=== PATIENT | female | born 1945 | race Caucasian/White ===

== ENCOUNTER → 2023-05-04 11:11 | Outpatient (REF) | payer MEDICARE, OTHER, SELFPAY | LOC: RAD 11:11 | PROVIDERS: ATTENDING PHYSICIAN Registered Nurse | DX: R07.81 Pleurodynia (principal); W19.XXXA Unspecified fall, initial encounter | CPT/HCPCS: 71101 ==

== ENCOUNTER 2023-07-16 11:59 | Emergency (ER) | payer MEDICARE, OTHER, SELFPAY ==
[2023-07-16 12:00] VITALS: BP 158/83
--- NOTE | 2023-07-16 13:06 | ED.GENMED ---
History of Present Illness
General
Chief Complaint: Skin Surface Trauma
Source: patient
Exam Limitations: none
Time Seen by Provider: 07/16/23 13:02
Nursing documentation reviewed up to this point in time: agreed with
Travel History
Have you had any contact with someone who has COVID-19?: No
Do you have any symptoms of coronavirus? Fever > 100 degrees, chills, cough, shortness of breath, sore throat, loss of taste or smell, muscle aches, or headache?: No
History of Present Illness
History of Present Illness:
This is a 78-year-old female with a past medical history of GERD who is presenting to the emergency department today with a left mcclure puncture wound. Patient states that she was working outside in the garden when she tripped and a small wooden
stake surrounding the garden punctured her left leg as she fell. Patient states that the stake did not break and states that there is no foreign body in her leg. Patient denies any head strike when she fell, denies any neck pain. Patient denies any
other injuries. Patient was able to get up after the fall and walk with no difficulty. Patient currently denies any pain in her leg. Patient states that after the injury, she went to the shower and rinsed out the wound with showerhead. Patient is
up-to-date on her tetanus vaccinations.
Past History
Past History
ED Past Medical History: Other (IBS); Negative Asthma, HTN, Hypercholesterolemia or NIDDM
ED Past Surgical History: Gynecological (Fallopian tubes clipped) and Orthopedic
Social History
Tobacco: Non-smoker
Alcohol: Occasional
Drug: None
Personal:
Living: with family
Review of Systems
Review of Systems
All Other Systems: ROS reviewed and negative except as documented in HPI and ROS
Phy Exam
Physical Exam
Physical Exam:
General: Patient is well appearing and in no acute distress; non-toxic
Skin: Warm and dry, no erythema. There is a 1 cm puncture wound on the left anterior mcclure. It is actively bleeding. It is about 3 mm in depth. No foreign body appreciated after copious irrigation.
Head: Normocephalic, atraumatic.
Eyes: Sclera non-icteric. EOMs intact.
Cardiac: Regular rate
Peripheral Vascular: No lower extremity swelling. 2+ dorsalis pedis pulses b/l.
Pulm: Normal respiratory effort
Abdomen: No abdominal tenderness
Musculoskeletal: No bony tenderness to palpation of left lower extremity. Full range of motion of bilateral lower extremities. Patient has full range of motion of cervical spine, no tenderness to palpation of cervical spine.
Neuro: CN II-XII intact, no focal neurologic deficits.
Psychiatric: Appropriate mood and affect.
Course
Vital Signs
Initial and Last Documented VS:
Initial Vital Signs
Temp Pulse Resp BP Pulse Ox
98.1 F 54 20 158/83 100
07/16/23 12:00 07/16/23 12:00 07/16/23 12:00 07/16/23 12:00 07/16/23 12:00
Last Documented Vital Signs
Temp Pulse Resp BP Pulse Ox
98.1 F 53 16 142/84 97
07/16/23 12:00 07/16/23 14:10 07/16/23 14:10 07/16/23 14:10 07/16/23 14:10
MDM/Problems Addressed
Differential Diagnosis Includes:
Differentials include puncture wound, abrasion, laceration, foreign body impaction
MDM/Problems Addressed:
left anterior mcclure puncture wound
*Pulse Oximetry
Patient hypoxic: no
*Critical Care Note
Total Time (30-74mins, 75-104mins- exclusive of procedures): Not Applicable
Data Reviewed
Review of Other/Old Records Reveals: Records (Reviewed ER physician documentation from 10/25/2017, reviewed ER physician documentation from 11/26/15 with)
Source: patient and records
Patient Management
Escalation/DeEscalation of care consider admission/obs:
This is a 78-year-old female who was gardening today when she tripped and fell, a small wooden stake surrounding the garden punctured her left leg as she fell. There is a 1 cm puncture wound on the left anterior mcclure. It is actively bleeding.
Hemostasis was controlled with pressure. It is about 3 mm in depth. No foreign body appreciated after copious irrigation. Wound was closed with Steri-Strips, wound care instructions given, return precautions given, patient stable for discharge.
Patient is very concerned about developing an infection and is requesting a antibiotic. I discussed with patient has not indicated at this time, however we decided to take a watch and wait approach and I sent a prescription of Keflex to her
pharmacy to use should she develop signs and symptoms of infection. Patient in agreement with plan.
ED Attending Note
-
Portions of this chart may have been created with voice recognition software.� Occasional wrong word or��sound alike� substitutions may have occurred due to the inherent limitations of voice recognition software.
Discharge Plan
Departure
Patient Disposition: Home (Routine Discharge)
Date of Disposition: 07/16/23
Time of Disposition: 13:47
Patient with high blood pressure during this ER visit?: Yes
Condition: Good
Discharge Problem:
Puncture wound
Instructions: Wound Care (DC), BLOOD PRESSURE, Puncture Wound
Prescriptions:
New
cephalexin 500 mg capsule
500 mg PO TID 5 Days Qty: 15 0RF
No Action
L.acidoph, paracasei,B. lactis 1 EACH capsule
1 ea PO DAILY
meclizine 25 MG tablet
25 mg PO Q8HPRN PRN (Reason: Dizziness) Qty: 10 0RF
ondansetron HCl 4 MG tablet
4 mg PO Q8HPRN PRN (Reason: Nausea/Vomiting) Qty: 5 0RF
Referrals:
Eladia Harris MD [Family Provider] -
Activity Restrictions/Additional Instructions:
We have given you a script for Keflex. Should you start to develop signs of infection such as redness surrounding the wound, purulent drainage from the wound, please start taking this antibiotic one tablet 4 times daily for 5 days.
Please return to the emergency department should you experience fevers or chills, decreased sensation in the leg, extensive redness around the wound, or any fevers or chills.
Please keep the wound dry for 24 hours. After 24 hours, you can wash the wound with mild soap and water over the Steri-Strips. The Steri-Strips will fall off on their own, please do not remove them until they fall off naturally.
Please follow up with your primary care provider.
Interventions
Interventions:
*Risk Screen - Suicide Last Done: 07/16/23 12:07
*General Assessment Last Done: 07/16/23 12:07
*Neglect/Abuse Screening Last Done: 07/16/23 12:07
ED- Fall Risk Assessment Last Done: 07/16/23 12:07
*ED COVID-19 Vaccine History Last Done: 07/16/23 12:07
*Nursing Disposition Last Done: 07/16/23 14:10
ED-Skin Assessment Last Done: 07/16/23 12:07
Discharge Date and Time
Discharge Date/Time: 07/16/23 14:15
Print Language: SLOVENIAN
[2023-07-16 13:39] VITALS: BP 141/84
[2023-07-16 14:10] VITALS: BP 142/84
--- NOTE | 2023-07-16 14:15 | EDRN ---
Reviewed discharge instructions with patient. Verbalized understanding. Ambulated with steady gait to the lobby.
== END 2023-07-16 14:15 | disposition home or self-care (01) ==
LOC: EMR 11:59
PROVIDERS: EMERGENCY PHYSICIAN Emergency Medicine; FAMILY PHYSICIAN Family Medicine
DX: S81.832A Puncture wound without foreign body, left lower leg, initial encounter (principal); W01.0XXA Fall on same level from slipping, tripping and stumbling without subsequent striking against object, initial encounter; R03.0 Elevated blood-pressure reading, without diagnosis of hypertension; K21.9 Gastro-esophageal reflux disease without esophagitis
CPT/HCPCS: 99282

== ENCOUNTER → 2023-09-24 07:11 | Outpatient (REF) | payer MEDICARE, OTHER, SELFPAY ==
[2023-09-24 08:13] LABS: % Basophils 1.3 % (0-2); % Eosinophils 3.1 % (0-6); % Immature Granulocytes 1.1 % (0-0.5); % Lymphocytes 32.5 % (20.5-51.1); Absolute Basophils 0.1 10^3/uL (0-0.2); Absolute Eosinophils 0.3 10^3/uL (0-0.7); Absolute Immature Granulocytes 0.1 10^3/uL (0-0.05); Absolute Lymphocytes 2.7 10^3/uL (1.2-3.4); Absolute Monocytes 0.7 10^3/uL (0.1-0.6); Absolute Neutrophils 4.5 10^3/uL (1.4-6.5); Hematocrit 42.9 % (37.0-47.0); Hemoglobin 14.3 g/dL (12.0-16.0); Mean Corp Hgb Conc. 33.3 g/dL (33.0-37.0); Mean Corpuscular Hgb 29.6 pg (27.0-31.0); Mean Corpuscular Volume 88.8 fL (81.0-99.0); Mean Platelet Volume 10.3 fL (7.4-10.4); Nucleated Red Blood Cells % 0 %; Platelet Count 259 10^3/uL (130-400); Red Blood Cell Count 4.83 10^6/uL (4.20-5.40); Red Cell Dist. Width 14.3 % (11.5-14.5); White Blood Cell Count 8.3 10^3/uL (4.8-10.8)
[2023-09-24 08:42] LABS: ALT (SGPT) 15 U/L (0-35); AST (SGOT) 29 U/L (14-36); Albumin 4.3 g/dl (3.5-5.0); Alkaline Phosphatase 101 U/L (38-126); Blood Urea Nitrogen 19 mg/dl (7-17); Calcium 9.9 mg/dl (8.4-10.2); Carbon Dioxide 27 mmol/L (22-30); Chloride 105 mmol/L (98-107); Glucose 100 mg/dl (70-99); HDL Cholesterol 67 mg/dl; LDL Cholesterol, Calculated 151 mg/dl; Sodium 139 mmol/L (135-145); Total Bilirubin 0.5 mg/dl (0.2-1.3); Total Cholesterol 236 mg/dl (50-199); Total Protein 6.8 g/dl (6.3-8.2); Triglyceride 92 mg/dl (10-149); Very Low Density Lipoprotein 18 mg/dl (0-30); eGFR > 60.00
[2023-09-24 09:08] LABS: TSH Reflex To Free T4 4.01 uIU/ml (0.47-4.68)
== END ==
LOC: REG 07:11
PROVIDERS: ATTENDING PHYSICIAN Family Medicine
DX: E78.00 Pure hypercholesterolemia, unspecified (principal); M85.852 Other specified disorders of bone density and structure, left thigh; Z00.00 Encounter for general adult medical examination without abnormal findings; R79.89 Other specified abnormal findings of blood chemistry; R53.83 Other fatigue; Z79.899 Other long term (current) drug therapy
CPT/HCPCS: 36415; 80053; 80061; 84443; 85025

== ENCOUNTER → 2023-10-21 10:18 | Outpatient (REF) | payer MEDICARE, OTHER, SELFPAY | LOC: WDC 10:18 | PROVIDERS: ATTENDING PHYSICIAN Family Medicine | DX: Z12.31 Encounter for screening mammogram for malignant neoplasm of breast (principal); Z78.0 Asymptomatic menopausal state | CPT/HCPCS: 77063; 77067; 77080 ==

== ENCOUNTER → 2023-11-02 12:21 | Outpatient (REF) | payer MEDICARE, OTHER, SELFPAY ==
[2023-11-02 13:13] LABS: % Basophils 1.1 % (0-2); % Eosinophils 2.3 % (0-6); % Immature Granulocytes 0.7 % (0-0.5); % Lymphocytes 27.3 % (20.5-51.1); % Monocytes 7.1 % (1.7-9.3); % Neutrophils 61.5 % (42.2-75.2); Absolute Basophils 0.1 10^3/uL (0-0.2); Absolute Eosinophils 0.2 10^3/uL (0-0.7); Absolute Immature Granulocytes 0.1 10^3/uL (0-0.05); Absolute Lymphocytes 2.6 10^3/uL (1.2-3.4); Absolute Monocytes 0.7 10^3/uL (0.1-0.6); Absolute Neutrophils 5.9 10^3/uL (1.4-6.5); Hematocrit 40.9 % (37.0-47.0); Hemoglobin 13.8 g/dL (12.0-16.0); Mean Corp Hgb Conc. 33.7 g/dL (33.0-37.0); Mean Corpuscular Hgb 29.6 pg (27.0-31.0); Mean Corpuscular Volume 87.8 fL (81.0-99.0); Mean Platelet Volume 10.9 fL (7.4-10.4); Nucleated Red Blood Cells % 0 %; Platelet Count 230 10^3/uL (130-400); Red Blood Cell Count 4.66 10^6/uL (4.20-5.40); Red Cell Dist. Width 14.1 % (11.5-14.5); White Blood Cell Count 9.6 10^3/uL (4.8-10.8)
== END ==
LOC: REG 12:21
PROVIDERS: ATTENDING PHYSICIAN Family Medicine
DX: R79.89 Other specified abnormal findings of blood chemistry (principal)
CPT/HCPCS: 36415; 85025

== ENCOUNTER 2024-03-03 17:11 | Emergency (ER) | payer MEDICARE, OTHER, SELFPAY ==
[2024-03-03 17:31] VITALS: BP 143/116
--- NOTE | 2024-03-03 17:39 | ED.SKININJ ---
HPI-Injury
<Tamia Castrejon PA-C - Last Filed: 03/03/24 17:41>
General
Chief Complaint: Bite
Time Seen by Provider: 03/03/24 19:15
<Abdifatah Li DO - Last Filed: 03/03/24 19:37>
History of Present Illness-Injury
Initial Injury comments:
TIME OF INITIAL ENCOUNTER:
HPI: The patient's dog jumped out of the car and started fighting with a much larger dog. The larger dog bit the patient's right lower extremity. She does have some radiating pain from that site. The dogs rabies status is up-to-date and the
patient's tetanus status is up-to-date.
EXAM:
GENERAL: Well appearing in no distress
HEENT: Moist oral mucosa
NEUROLOGIC: Excellent strength all extremities, no obvious coordination deficits
PSYCHIATRIC: Appropriate mental status, normal insight and judgement
EXTREMITIES: Nontender, no edema, moves all extremities equally
SKIN: There is an irregular superficial laceration to the mid�distal right mcclure, This is tender to palpation, scant blood noted
NUMBER AND COMPLEXITY OF PROBLEMS ADDRESSED AT THE ENCOUNTER
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
� Acute Exacerbation and/or Progression of Chronic Illness: This is an acute problem
� Differential Diagnosis includes: Dog bite, no evidence for infection, no evidence for foreign body
AMOUNT AND/OR COMPLEXITY OF DATA TO BE REVIEWED AND ANALYZED
� I performed an independent evaluation of and my interpretation is:
EKG:
CT:
X-rays: X-rays reviewed�no evidence of foreign body or bony involvement
Laboratory Studies:
Other:
� Review of other/old records: The patient was seen here in July with a puncture wound
� Clinical information was obtained by an independent historian: I spoke to the at bedside
� Prescriptions/Medications Considered but not given:
� Further testing considered but not performed:
RISK OF COMPLICATIONS AND/OR MORBIDITY OR MORTALITY OF PATIENT MANAGEMENT
� Social determinants of health affecting care: Lives at home
� Discussion with other providers:
� Escalation of care including admission/observation vs risk of discharge considered: I cleaned the wound with saline and then used ChloraPrep. I placed antibiotic ointment and then a new pressure dressing. No further bleeding.
I did not suture the wound.
ANY OTHER UPDATES:
ED Provider Triage
<Tamia Castrejon PA-C - Last Filed: 03/03/24 17:41>
-
Patient seen by provider in Triage?: Seen in Triage
Attestation: A medical screening examination has been initiated by a qualified medical provider. Based on the assessment performed at this time, it has been determined that an emergent medical condition may exist and the patient has been informed
that further medical evaluation and possible additional diagnostic testing may be needed.
HPI:
GENERAL: Alert , in no apparent distress
EYE: No visual abnormalities.
NECK: Trachea midline
ENT: No visible abnormalities.
LUNGS: No acute respiratory distress
NEUROLOGICAL: Alert and oriented
SKIN: Skin intact. No visible changes.
MUSCULOSKELETAL: Moving extremities normally
PSYCH: Normal and appropriate interaction.
This is a medical evaluation conducted in person to initiate diagnostic evaluation and provide initial therapeutics. Please see further documentation by the treating clinician.
Past History
<Tamia Castrejon PA-C - Last Filed: 03/03/24 17:41>
Past History
ED Past Medical History: Other (IBS); Negative Asthma, HTN, Hypercholesterolemia or NIDDM
ED Past Surgical History: Gynecological (Fallopian tubes clipped) and Orthopedic
Social History
Tobacco: Non-smoker
Alcohol: Occasional
Drug: None
Personal:
Living: with family
Phy Exam
<Abdifatah Li DO - Last Filed: 03/03/24 19:37>
Physical Exam
Physical Exam:
See HPI
Course
<Tamia Castrejon PA-C - Last Filed: 03/03/24 17:41>
Orders/Labs/Results
Orders:
Orders
03/03/24 17:38
CR Leg Tibia/fibula Right 2 Vw Urgent
Comment:
Reason For Exam: bite
03/03/24 19:31
Amoxicillin 875 mg/Clav 125 mg [Augmentin 875 mg/125 mg] 1 tablet PO NOW STA
Vital Signs
Initial and Last Documented VS:
Initial Vital Signs
Temp Pulse Resp BP Pulse Ox
37.2 C 61 18 143/116 97
03/03/24 17:31 03/03/24 17:31 03/03/24 17:31 03/03/24 17:31 03/03/24 17:31
Last Documented Vital Signs
Temp Pulse Resp BP Pulse Ox
37.2 C 61 18 143/116 97
03/03/24 17:31 03/03/24 17:31 03/03/24 17:31 03/03/24 17:31 03/03/24 17:31
<Abdifatah Li DO - Last Filed: 03/03/24 19:37>
Orders/Labs/Results
Orders:
Orders
03/03/24 17:38
CR Leg Tibia/fibula Right 2 Vw Urgent
Comment:
Reason For Exam: bite
03/03/24 19:31
Amoxicillin 875 mg/Clav 125 mg [Augmentin 875 mg/125 mg] 1 tablet PO NOW STA
Vital Signs
Initial and Last Documented VS:
Initial Vital Signs
Temp Pulse Resp BP Pulse Ox
37.2 C 61 18 143/116 97
03/03/24 17:31 03/03/24 17:31 03/03/24 17:31 03/03/24 17:31 03/03/24 17:31
Last Documented Vital Signs
Temp Pulse Resp BP Pulse Ox
37.2 C 61 18 143/116 97
03/03/24 17:31 03/03/24 17:31 03/03/24 17:31 03/03/24 17:31 03/03/24 17:31
<Abdifatah Li DO - Last Filed: 03/03/24 19:37>
*Critical Care Note
Total Time (30-74mins, 75-104mins- exclusive of procedures): Not Applicable
ED Attending Note
<Tamia Castrejon PA-C - Last Filed: 03/03/24 17:41>
-
Portions of this chart may have been created with voice recognition software.� Occasional wrong word or��sound alike� substitutions may have occurred due to the inherent limitations of voice recognition software.
Discharge Plan
Departure
Patient Disposition: Home (Routine Discharge)
Date of Disposition: 03/03/24
Time of Disposition: 19:32
Patient with high blood pressure during this ER visit?: Yes
Discharge Problem:
Dog bite
Instructions: Animal Bites (DC), BLOOD PRESSURE
Prescriptions:
New
amoxicillin-pot clavulanate 875-125 mg tablet
1 tab PO BID Qty: 10 0RF
No Action
L.acidoph,paracasei,B.animalis 1 EACH capsule
1 ea PO DAILY
meclizine 25 MG tablet
25 mg PO Q8HPRN PRN (Reason: Dizziness) Qty: 10 0RF
ondansetron HCl 4 MG tablet
4 mg PO Q8HPRN PRN (Reason: Nausea/Vomiting) Qty: 5 0RF
cephalexin 500 mg capsule
500 mg PO TID 5 Days Qty: 15 0RF
Activity Restrictions/Additional Instructions:
Next dose of antibiotics tomorrow morning. Leave this dressing on until tomorrow and then redress. You could also start using Band-Aids soon as well.
Interventions
Interventions:
*Risk Screen - Suicide Last Done: 03/03/24 17:36
*General Assessment Last Done: 03/03/24 17:36
*Neglect/Abuse Screening Last Done: 03/03/24 17:36
ED- Fall Risk Assessment Last Done: 03/03/24 19:32
*ED COVID-19 Vaccine History Last Done: 03/03/24 17:36
*Nursing Disposition Last Done: 03/03/24 19:32
ED-Skin Assessment Last Done: 03/03/24 19:32
Discharge Date and Time
Print Language: ESTONIAN
[2024-03-03] MEDS: AUGMENTIN 875 MG/125 MG 1 TABLET PO (19:38)
== END 2024-03-03 19:35 | disposition home or self-care (01) ==
LOC: EMR 17:11
PROVIDERS: EMERGENCY PHYSICIAN Emergency Medicine; FAMILY PHYSICIAN Family Medicine
DX: S81.811A Laceration without foreign body, right lower leg, initial encounter (principal); W54.0XXA Bitten by dog, initial encounter
CPT/HCPCS: 99283; 73590

== ENCOUNTER → 2024-03-28 08:15 | Outpatient (REF) | payer MEDICARE, OTHER, SELFPAY | LOC: WOUND 08:15 | PROVIDERS: ATTENDING PHYSICIAN Surgery; FAMILY PHYSICIAN Family Medicine | DX: L97.212 Non-pressure chronic ulcer of right calf with fat layer exposed (principal); S81.851A Open bite, right lower leg, initial encounter; W54.0XXA Bitten by dog, initial encounter | CPT/HCPCS: 11042; 99203 ==

== ENCOUNTER → 2024-04-04 13:59 | Outpatient (REF) | payer MEDICARE, OTHER, SELFPAY | LOC: WOUND 13:59 | PROVIDERS: ATTENDING PHYSICIAN Surgery; FAMILY PHYSICIAN Family Medicine | DX: L97.212 Non-pressure chronic ulcer of right calf with fat layer exposed (principal); S81.851A Open bite, right lower leg, initial encounter; W54.0XXA Bitten by dog, initial encounter | CPT/HCPCS: 11042 ==

== ENCOUNTER → 2024-04-11 13:58 | Outpatient (REF) | payer MEDICARE, OTHER, SELFPAY | LOC: WOUND 13:58 | PROVIDERS: ATTENDING PHYSICIAN Surgery; FAMILY PHYSICIAN Family Medicine | DX: L97.212 Non-pressure chronic ulcer of right calf with fat layer exposed (principal); S81.851A Open bite, right lower leg, initial encounter; W54.0XXA Bitten by dog, initial encounter | CPT/HCPCS: 11042 ==

== ENCOUNTER → 2024-04-18 14:01 | Outpatient (REF) | payer MEDICARE, OTHER, SELFPAY | LOC: WOUND 14:01 | PROVIDERS: ATTENDING PHYSICIAN Surgery; FAMILY PHYSICIAN Family Medicine | DX: L97.212 Non-pressure chronic ulcer of right calf with fat layer exposed (principal); S81.851A Open bite, right lower leg, initial encounter; W54.0XXS Bitten by dog, sequela | CPT/HCPCS: 11042 ==

== ENCOUNTER → 2024-04-26 10:42 | Outpatient (REF) | payer MEDICARE, OTHER, SELFPAY | LOC: WOUND 10:42 | PROVIDERS: ATTENDING PHYSICIAN Surgery; FAMILY PHYSICIAN Family Medicine | DX: L97.212 Non-pressure chronic ulcer of right calf with fat layer exposed (principal); S81.851A Open bite, right lower leg, initial encounter; W54.0XXA Bitten by dog, initial encounter | CPT/HCPCS: 11042 ==

== ENCOUNTER → 2024-05-03 09:08 | Outpatient (REF) | payer MEDICARE, OTHER, SELFPAY | LOC: WOUND 09:08 | PROVIDERS: ATTENDING PHYSICIAN Surgery; FAMILY PHYSICIAN Family Medicine | DX: L97.212 Non-pressure chronic ulcer of right calf with fat layer exposed (principal); S81.851A Open bite, right lower leg, initial encounter; W54.0XXA Bitten by dog, initial encounter | CPT/HCPCS: 11042 ==

== ENCOUNTER → 2024-05-17 09:45 | Outpatient (REF) | payer MEDICARE, OTHER, SELFPAY | LOC: WOUND 09:45 | PROVIDERS: ATTENDING PHYSICIAN Surgery; FAMILY PHYSICIAN Family Medicine | DX: L97.212 Non-pressure chronic ulcer of right calf with fat layer exposed (principal); S81.851A Open bite, right lower leg, initial encounter; W54.0XXA Bitten by dog, initial encounter | CPT/HCPCS: 11042 ==

== ENCOUNTER → 2024-05-31 11:31 | Outpatient (REF) | payer MEDICARE, OTHER, SELFPAY | LOC: WOUND 11:31 | PROVIDERS: ATTENDING PHYSICIAN Surgery; FAMILY PHYSICIAN Family Medicine | DX: L97.212 Non-pressure chronic ulcer of right calf with fat layer exposed (principal); S81.851A Open bite, right lower leg, initial encounter; W54.0XXA Bitten by dog, initial encounter | CPT/HCPCS: 11042 ==

== ENCOUNTER → 2024-06-16 13:50 | Outpatient (REF) | payer MEDICARE, OTHER, SELFPAY ==
[2024-06-16 14:52] LABS: % Basophils 1.2 % (0-2); % Eosinophils 3.3 % (0-6); % Immature Granulocytes 0.4 % (0-0.5); % Lymphocytes 39.2 % (20.5-51.1); % Monocytes 7.6 % (1.7-9.3); % Neutrophils 48.3 % (42.2-75.2); Absolute Basophils 0.1 10^3/uL (0-0.2); Absolute Eosinophils 0.3 10^3/uL (0-0.7); Absolute Monocytes 0.6 10^3/uL (0.1-0.6); Absolute Neutrophils 3.6 10^3/uL (1.4-6.5); Hematocrit 40.1 % (37.0-47.0); Hemoglobin 13.5 g/dL (12.0-16.0); Mean Corp Hgb Conc. 33.7 g/dL (33.0-37.0); Mean Corpuscular Volume 86.1 fL (81.0-99.0); Mean Platelet Volume 9.9 fL (7.4-10.4); Nucleated Red Blood Cells % 0 %; Platelet Count 181 10^3/uL (130-400); Red Blood Cell Count 4.66 10^6/uL (4.20-5.40); Red Cell Dist. Width 13.9 % (11.5-14.5); White Blood Cell Count 7.5 10^3/uL (4.8-10.8)
[2024-06-16 15:39] LABS: ALT (SGPT) 15 U/L (0-35); AST (SGOT) 26 U/L (14-36); Albumin 4.6 g/dl (3.5-5.0); Alkaline Phosphatase 116 U/L (38-126); Blood Urea Nitrogen 30 mg/dl (7-17); Calcium 10.1 mg/dl (8.4-10.2); Carbon Dioxide 28 mmol/L (22-30); Chloride 106 mmol/L (98-107); Glucose 99 mg/dl (70-99); Potassium 4.8 mmol/L (3.5-5.1); Sodium 142 mmol/L (135-145); Total Bilirubin 0.6 mg/dl (0.2-1.3); Total Protein 7.2 g/dl (6.3-8.2); eGFR > 60.00
[2024-06-16 16:08] LABS: TSH 2.26 uIU/ml (0.47-4.68)
== END ==
LOC: REG 13:50
PROVIDERS: ATTENDING PHYSICIAN Family Medicine
DX: R53.83 Other fatigue (principal); S80.01XA Contusion of right knee, initial encounter; Z96.651 Presence of right artificial knee joint
CPT/HCPCS: 36415; 73564; 80053; 84443; 85025

== ENCOUNTER → 2024-06-21 11:03 | Outpatient (REF) | payer MEDICARE, OTHER, SELFPAY | LOC: WOUND 11:03 | PROVIDERS: ATTENDING PHYSICIAN Surgery; FAMILY PHYSICIAN Family Medicine | DX: L97.212 Non-pressure chronic ulcer of right calf with fat layer exposed (principal); S81.851A Open bite, right lower leg, initial encounter; W54.0XXA Bitten by dog, initial encounter | CPT/HCPCS: 99212 ==

== ENCOUNTER 2024-07-13 10:06 | Outpatient (RCR) | payer MEDICARE, OTHER, SELFPAY | END 2024-07-13 23:59 | disposition home or self-care (01) | LOC: RPT 10:06 | PROVIDERS: ATTENDING PHYSICIAN Family Medicine | DX: M25.562 Pain in left knee (principal); M62.81 Muscle weakness (generalized); Z73.6 Limitation of activities due to disability; R29.6 Repeated falls | CPT/HCPCS: 97110; 97112; 97163 ==

== ENCOUNTER 2024-08-03 10:03 | Outpatient (RCR) | payer MEDICARE, OTHER, SELFPAY | END 2024-08-03 23:59 | disposition home or self-care (01) | LOC: RPT 10:03 | PROVIDERS: ATTENDING PHYSICIAN Family Medicine | DX: R29.6 Repeated falls (principal); M25.562 Pain in left knee (principal); M62.81 Muscle weakness (generalized); Z73.6 Limitation of activities due to disability | CPT/HCPCS: 97110; 97112 ==

== ENCOUNTER 2024-08-31 10:11 | Outpatient (RCR) | payer MEDICARE, OTHER, SELFPAY | END 2024-08-31 23:59 | disposition home or self-care (01) | LOC: RPT 10:11 | PROVIDERS: ATTENDING PHYSICIAN Family Medicine | DX: R29.6 Repeated falls (principal); M25.562 Pain in left knee (principal); M62.81 Muscle weakness (generalized); Z73.6 Limitation of activities due to disability | CPT/HCPCS: 97110; 97112 ==

== ENCOUNTER → 2024-11-03 09:53 | Outpatient (REF) | payer MEDICARE, OTHER, SELFPAY ==
[2024-11-06 01:05] LABS: Bacterial Vaginosis by TMA Positive; Candida glabrata by TMA Negative; Candida species by TMA Positive; Trichomonas vaginalis by TMA Negative
== END ==
LOC: CLAB 09:53
PROVIDERS: ATTENDING PHYSICIAN Nurse Practitioner Adult Health
DX: N76.0 Acute vaginitis (principal)
CPT/HCPCS: 81513; 87481; 87661

== ENCOUNTER 2024-11-30 09:30 | Emergency (ER) | payer MEDICARE, OTHER, SELFPAY ==
[2024-11-30 09:33] VITALS: BP 141/71
--- NOTE | 2024-11-30 10:45 | ED.GENMED ---
History of Present Illness
General
Chief Complaint: DVT/Possible Blood Clot
Source: patient
Exam Limitations: none
Time Seen by Provider: 11/30/24 10:37
History of Present Illness
History of Present Illness:
79yoF with a history of prior varicose vein surgery on the R leg many years ago presenting for evaluation of leg pain. Patient reports pain in her right medial thigh over the past 2 days. She also feels that the right leg is more swollen than the
left leg. Her veins are chronically enlarged due to her prior varicose vein surgery that failed. She is worried that she has a blood clot. Patient has been standing more recently due to brad tomatoes. She denies any specific trauma. She is
otherwise asymptomatic and denies any chest pain, shortness of breath, back pain.
Past History
Past History
ED Past Medical History: Other (IBS); Negative Asthma, HTN, Hypercholesterolemia or NIDDM
ED Past Surgical History: Gynecological (Fallopian tubes clipped) and Orthopedic
Social History
Tobacco: Non-smoker
Alcohol: Occasional
Drug: None
Personal:
Living: with family
Phy Exam
General Physical Exam
General Presentation: well appearing and no apparent distress
General Skin: warm and dry
General Habitus: normal
General Mental: alert
ENT Exam
ENT Exam: normocephalic
Pulmonary Exam
Pulmonary Exam: no respiratory distress
Neurological Exam
Neurological Exam: alert
[place] Coma Scale
Eye Opening: Spontaneous
Verbal Response: Oriented
Motor Response: Obeys Commands
GCS Total Score: 15
Musculoskeletal Exam
Musculoskeletal Exam: other (Right leg: Varicosities noted. +Tenderness to medial thigh. No overlying erythema. ROM of hip and knee intact. 2+ DP pulse and sensation intact.)
Skin Exam
Skin Exam: warm/dry
Psychiatric Exam
Psychiatric Exam: normal mood/affect
Course
Orders/Labs/Results
Orders:
Orders
11/30/24 10:45
Venous Doppler Lwr Ext Rt [US Periph Venous LOWER Ext RT] Urgent
Comment:
Reason For Exam: R inner thigh pain, swelling
Vital Signs
Initial and Last Documented VS:
Initial Vital Signs
Temp Pulse Resp BP Pulse Ox
98.5 F 54 16 141/71 98
11/30/24 09:33 11/30/24 09:33 11/30/24 09:33 11/30/24 09:33 11/30/24 09:33
Last Documented Vital Signs
Temp Pulse Resp BP Pulse Ox
98.5 F 56 16 141/71 98
11/30/24 09:33 11/30/24 12:00 11/30/24 12:00 11/30/24 09:33 11/30/24 12:15
MDM/Problems Addressed
Differential Diagnosis Includes:
79yoF here with atraumatic R thigh pain x 2 days. Hx of varicose vein surgery in that leg. No CP/SOB. VSS. Varicosities noted. No pitting edema in extremity and RLE neurovascularly intact. Differential diagnosis includes: DVT, superficial
thrombophlebitis, symptomatic varicose veins, muscular strain, no palpable hernia
Venous duplex obtained which is negative for DVT. Patient provided with reassurance and was discharged stable condition.
*Pulse Oximetry
SaO2: 98
Oxygen Mode of Delivery: Room air
Patient hypoxic: no
*Critical Care Note
Total Time (30-74mins, 75-104mins- exclusive of procedures): Not Applicable
ED Attending Note
-
Portions of this chart may have been created with voice recognition software.� Occasional wrong word or��sound alike� substitutions may have occurred due to the inherent limitations of voice recognition software.
Discharge Plan
Departure
Patient Disposition: Home (Routine Discharge)
Date of Disposition: 11/30/24
Time of Disposition: 12:28
Patient with high blood pressure during this ER visit?: Yes
Discharge Problem:
Pain in right thigh
Instructions: Muscle, joint, and bone pain (DC)
Prescriptions:
No Action
valdez Doan B.animalis 1 EACH capsule
1 ea PO DAILY
meclizine 25 MG tablet
25 mg PO Q8HPRN PRN (Reason: Dizziness) Qty: 10 0RF
ondansetron HCl 4 MG tablet
4 mg PO Q8HPRN PRN (Reason: Nausea/Vomiting) Qty: 5 0RF
cephalexin 500 mg capsule
500 mg PO TID 5 Days Qty: 15 0RF
amoxicillin-pot clavulanate 875-125 mg tablet
1 tab PO BID Qty: 10 0RF
Referrals:
Eladia Harris MD [Family Provider, Family Practice]
Activity Restrictions/Additional Instructions:
Your ultrasound was negative for blood clots. Apply heat to affected area and take Tylenol as needed for pain.
Please follow-up with your family doctor. Return to the ER with any new or worsening symptoms.
Interventions
Interventions:
*Risk Screen - Suicide Last Done: 11/30/24 09:33
*Neglect/Abuse Screening Last Done: 11/30/24 09:33
*Nursing Disposition Last Done: 11/30/24 12:53
ED- Cardiac Assessment Last Done: 11/30/24 12:15
ED- Pulmonary Assessment Last Done: 11/30/24 12:15
ED-Peripheral Vascular Assessment Last Done: 11/30/24 12:15
ED-Skin Assessment Last Done: 11/30/24 12:15
Discharge Date and Time
Discharge Date/Time: 11/30/24 12:54
Print Language: [place]
== END 2024-11-30 12:54 | disposition home or self-care (01) ==
LOC: EMR 09:30
PROVIDERS: EMERGENCY PHYSICIAN Emergency Medicine; FAMILY PHYSICIAN Family Medicine
DX: M79.651 Pain in right thigh (principal); K58.9 Irritable bowel syndrome, unspecified
CPT/HCPCS: 99284; 93971

== ENCOUNTER → 2025-03-10 08:30 | Outpatient (REF) | payer MEDICARE, OTHER, SELFPAY ==
[2025-03-10 09:25] LABS: Hematocrit 41.1 % (37.0-47.0); Hemoglobin 13.3 g/dL (12.0-16.0); Mean Corp Hgb Conc. 32.4 g/dL (33.0-37.0); Mean Corpuscular Volume 86.0 fL (81.0-99.0); Nucleated Red Blood Cells % 0 %; Platelet Count 210 10^3/uL (130-400); Red Cell Dist. Width 13.7 % (11.5-14.5)
[2025-03-10 09:37] LABS: Glycohemoglobin (HgbA1c) 5.9 % (4.0-5.9)
[2025-03-10 09:52] LABS: ALT (SGPT) 12 U/L (0-35); AST (SGOT) 23 U/L (14-36); Albumin 4.3 g/dl (3.5-5.0); Alkaline Phosphatase 104 U/L (38-126); Blood Urea Nitrogen 23 mg/dl (7-17); Calcium 9.9 mg/dl (8.4-10.2); Carbon Dioxide 26 mmol/L (22-30); Chloride 106 mmol/L (98-107); Glucose 98 mg/dl (70-99); Potassium 4.3 mmol/L (3.5-5.1); Sodium 139 mmol/L (135-145); Total Protein 7.2 g/dl (6.3-8.2); eGFR > 60.00
== END ==
LOC: REG 08:30
PROVIDERS: ATTENDING PHYSICIAN Family Medicine
DX: F41.1 Generalized anxiety disorder (principal); Z68.28 Body mass index [BMI] 28.0-28.9, adult; Z79.899 Other long term (current) drug therapy
CPT/HCPCS: 36415; 80053; 83036; 84443; 85025